=== PATIENT | female | born 1950 | race Caucasian/White ===

== ENCOUNTER 2019-11-19 09:48 | Outpatient (CLI) | payer MEDICARE, SELFPAY ==
--- NOTE | ~2019-11-19 | DEXA_ITS ---
Bone Density Report Name: Berta Virgen Age: 69 Sex: Female Ethnicity: White Date of : 1950 Indication: osteopenia; monitoring treatment; parental hip fracture; postmenopausal Referring Provider: DEMARCO PHILLIP Study: Bone densitometry was performed. Exam Date: November 19, 2019 Accession number: [id number] Bone Density: Region BMD T-score Z-score Classification AP Spine (L2, L3, L4) 0.908 -1.6 0.6 Osteopenia Femoral Neck (Left) 0.652 -1.8 0.0 Osteopenia Total Hip (Left) 0.818 -1.0 0.5 Normal Total Hip Bilateral Avg 0.796 -1.2 0.3 Osteopenia Femoral Neck (Right) 0.585 -2.4 -0.6 Osteopenia Total Hip (Right) 0.772 -1.4 0.1 Osteopenia World Health Organization criteria for BMD impression classify patients as: Normal (T-score at or above -1.0), Osteopenia (T-score between -1.0 and -2.5), or Osteoporosis (T-score at or below -2.5). 10-year Fracture Risk: FRAX not reported because: Treated for osteoporosis Previous Exams: Region Exam Age BMD T-score BMD Change BMD Change Date g/cm2 vs Baseline vs Previous AP Spine(L2, L3, L4) 11/19/2019 69 0.908 -1.6 -0.041(-4.3%)* -0.012(-1.3%) 05/25/2017 66 0.920 -1.4 -0.029(-3.1%)* -0.029(-3.1%)* 03/21/2015 64 0.950 -1.2 Total Hip(Left) 11/19/2019 69 0.818 -1.0 -0.029(-3.5%)* -0.049(-5.6%)* 05/25/2017 66 0.867 -0.6 0.019(2.3%) 0.019(2.3%) 03/21/2015 64 0.848 -0.8 Total Hip(Right) 11/19/2019 69 0.772 -1.4 -0.025(-3.2%) -0.030(-3.7%)* 05/25/2017 66 0.802 -1.1 0.005(0.6%) 0.005(0.6%) 03/21/2015 64 0.797 -1.2 *Denotes significance at 95% confidence level, LSC for AP Spine = 0.022 g/cm2, LSC for Total Hip = 0.027 g/cm2 Clinical Information Provided by Patient: Parent has had a hip fracture Is being treated for osteoporosis Has used the following medications: Boniva (i.e. ibandronate), Fosamax (i.e. alendronate), Vitamin D, Calcium Patient maximum height was 66 Menopause Age: 46 No regular weight bearing exercise Drinks caffeinated beverages Onset of menses at age 11 Number of children 0 Impression: The patient has low bone mass, based on the Right Femoral Neck T-score. The patient has risk factors, including: parental hip fracture. The BMD for the Total Hip(Left) decreased, changing by -5.6% since the last DXA exam. The BMD for the Total Hip(Right) decreased, changing by -3.7% since the last DXA exam. Discussion: SIGNIFICANT BONE LOSS OBSERVED.
== END 2019-11-19 09:49 | disposition home or self-care (01) ==
LOC: ANHIMG 09:52
PROVIDERS: PCP Emergency Medicine; Visit Provider Emergency Medicine
DX: Z78.0 Asymptomatic menopausal state (principal); M85.88 Other specified disorders of bone density and structure, other site; M85.852 Other specified disorders of bone density and structure, left thigh; M85.851 Other specified disorders of bone density and structure, right thigh
CPT/HCPCS: 77080

== ENCOUNTER 2020-01-09 14:16 | Outpatient (CLI) | payer MEDICARE, SELFPAY ==
--- NOTE | ~2020-01-09 | MM_ITS ---
EXAMINATION: MM screening [facility] w vanessa HISTORY: Screening TECHNIQUE: Craniocaudal and mediolateral oblique 3-D tomosynthesis images were obtained and synthetic 2-D images were generated. CAD analysis was submitted and interpreted. COMPARISON: Comparison to multiple prior studies sequentially, with oldest reviewed study dated 09/2016. BREAST PARENCHYMAL COMPOSITION: There are scattered areas of fibroglandular density. FINDINGS: There is no evidence of suspicious mass, calcification, or architectural distortion to sugg est malignancy in either breast. There has been no suspicious interval change. IMPRESSION: 1. No mammographic evidence of malignancy. 2. Recommend routine screening mammography in one year. BI-RADS Category 1: Negative Reviewed, dictated and finalized at location A.
== END 2020-01-09 14:17 | disposition home or self-care (01) ==
LOC: ANHIMG 14:18
PROVIDERS: PCP Emergency Medicine; Visit Provider Emergency Medicine
DX: Z12.31 Encounter for screening mammogram for malignant neoplasm of breast (principal)
CPT/HCPCS: 77063; 77067

== ENCOUNTER 2021-12-02 10:33 | Outpatient (CLI) | payer MEDICARE, SELFPAY ==
--- NOTE | ~2021-12-02 | MM_ITS ---
EXAMINATION: MM screening [facility] BI w vanessa HISTORY: Screening TECHNIQUE: Craniocaudal and mediolateral oblique 3-D tomosynthesis images were obtained and synthetic 2-D images were generated. CAD analysis was submitted and interpreted. COMPARISON: Comparison to multiple prior studies sequentially, with oldest reviewed study dated 09/2016. BREAST PARENCHYMAL COMPOSITION: There are scattered areas of fibroglandular density. FINDINGS: There is no evidence of suspicious mass, calcification, or architectural distortion to sugg est malignancy in either breast. There has been no suspicious interval change. IMPRESSION: 1. No mammographic evidence of malignancy. 2. Recommend routine screening mammography in one year. BI-RADS Category 1: Negative Reviewed, dictated and finalized at location A.
== END 2021-12-02 10:34 | disposition home or self-care (01) ==
PROVIDERS: PCP Emergency Medicine; Visit Provider Emergency Medicine
DX: Z12.31 Encounter for screening mammogram for malignant neoplasm of breast (principal)
CPT/HCPCS: 77063; 77067

== ENCOUNTER 2022-05-21 09:45 | Outpatient (CLI) | payer MEDICARE, SELFPAY ==
--- NOTE | ~2022-05-21 | DEXA_ITS ---
Bone Density Report Name: DAVID BOGGS Age: 71 Sex: Female Ethnicity: White Date of : 1950 Indication: osteopenia; parental hip fracture; postmenopausal Referring Provider: DEMARCO PHILLIP Study: Bone densitometry was performed. Exam Date: May 21, 2022 Accession number: [id number] Bone Density: Region BMD T-score Z-score Classification AP Spine(L2, L3, L4) 0.944 -1.2 1.1 Osteopenia Femoral Neck (Left) 0.661 -1.7 0.3 Osteopenia Total Hip (Left) 0.834 -0.9 0.8 Normal Femoral Neck (Right) 0.614 -2.1 -0.2 Osteopenia Total Hip (Right) 0.706 -1.9 -0.3 Osteopenia Total Hip Mean 0.770 -1.4 0.3 Osteopenia World Health Organization criteria for BMD impression classify patients as: Normal (T-score at or above -1.0), Osteopenia (T-score between -1.0 and -2.5), or Osteoporosis (T-score at or below -2.5). 10-year Fracture Risk(1): Major Osteoporotic Fracture 21% Hip Fracture 9.2% Reported Risk Factors: [place] (), Neck BMD=0.614, BMI=23.8, parental fracture (1) FRAX(R) Version 3.08. Fracture probability calculated for an untreated patient. Fracture probability may be lower if the patient has received treatment. Previous Exams: Region Exam Age BMD T-score BMD Change BMD Change Date g/cm2 vs Baseline vs Previous AP Spine (L2-L4) 05/21/2022 71 0.944 -1.2 -0.006 (-0.6%) 0.036 (3.9%)* 11/19/2019 69 0.908 -1.6 -0.041 (-4.3%) -0.012 (-1.3%) 05/25/2017 66 0.920 -1.4 -0.029 (-3.1%) -0.029 (-3.1%) 03/21/2015 64 0.950 -1.2 Total Hip(Left) 05/21/2022 71 0.834 -0.9 -0.013 (-1.6%) 0.016 (2.0%) 11/19/2019 69 0.818 -1.0 -0.029 (-3.5%) -0.049 (-5.6%) 05/25/2017 66 0.867 -0.6 0.019 (2.3%) 0.019 (2.3%) 03/21/2015 64 0.848 -0.8 Total Hip(Right) 05/21/2022 71 0.706 -1.9 -0.091 (-11.4% -0.066 (-8.5%) 11/19/2019 69 0.772 -1.4 -0.025 (-3.2%) -0.030 (-3.7%) 05/25/2017 66 0.802 -1.1 0.005 (0.6%) 0.005 (0.6%) 03/21/2015 64 0.797 -1.2 *Denotes significance at 95% confidence level, LSC for AP Spine = 0.022 g/cm2, LSC for Total Hip = 0.027 g/cm2 Clinical Information Provided by Patient: Parent has had a hip fracture Has used the following medications: Vitamin D, Calcium Patient maximum height was 66 Menopause Age: 46 Onset of menses at age 11 Number of children 0 Impression: The patient has low bone mass, based on the Right Femoral Neck T-score.
== END 2022-05-21 09:46 | disposition home or self-care (01) ==
LOC: ANHIMG 09:47
PROVIDERS: PCP Emergency Medicine; Visit Provider Emergency Medicine
DX: Z78.0 Asymptomatic menopausal state (principal); M85.89 Other specified disorders of bone density and structure, multiple sites
CPT/HCPCS: 77080

== ENCOUNTER 2022-12-16 00:12 | Day surgery (SDC) | payer MEDICARE, SELFPAY ==
[2022-12-08 08:51] VITALS: BMI 23.3
[2022-12-16 10:51] VITALS: BP 151/71; PULSE 59; RESP 20; TEMP 36.3; O2SAT 98; BMI 22.4
[2022-12-16] MEDS: LACTATED RINGERS 1,000 ML 150 ML IV CONT (10:59)
--- NOTE | 2022-12-16 11:01 | WPDANESEPPF ---
Anes - Initial Pre Proc Eval Procedure: Operation Date: 12/16/22 13:15 Proposed Procedures p Screening Colonoscopy - Asim Mckeon MD Date/Time: 12/16/22 11:01 Surgeon: Asim Mckeon MD Pre Op Diagnosis: neoplasm screening Patient Data Age: 72 Gender: F Height: 1.65 m Weight: 61.1 kg Last Vital Signs Temp 97.4 F L 12/16/22 10:51 Pulse 59 L 12/16/22 10:51 Resp 20 12/16/22 10:51 BP 151/71 H 12/16/22 10:51 Pulse Ox 98 12/16/22 10:51 O2 Del Method Room Air 12/16/22 10:51 Allergies Allergy/AdvReac Type Severity Reaction Status Date / Time No Known Allergies Allergy Verified 12/16/22 10:50 Home Medications Medication Instructions Recorded Confirmed Type fluphenazine enanthate 25 mg/mL 25 mg .Route DIRECTED 07/14/20 12/16/22 History injection solution benztropine 0.5 mg tablet 0.5 mg PO DAILY 07/29/21 12/16/22 History clonazepam 0.5 mg tablet 0.5 mg PO DAILY PRN Anxiety 07/29/21 12/16/22 History fluphenazine HCl 1 mg tablet 1 mg PO DIRECTED PRN other 07/29/21 12/16/22 History calcium 600 mg capsule 600 mg PO DAILY 12/08/22 12/16/22 History cholecalciferol (vitamin D3) 25 25 mcg PO DAILY 12/08/22 12/16/22 History mcg (1,000 unit) tablet multivitamin with minerals-folic 1 tablet PO DAILY 12/08/22 12/16/22 History acid 80 mcg chewable tablet (Centrum Adult 50 Plus) pravastatin 40 mg tablet 40 mg PO DAILY 12/08/22 12/16/22 History Patient hx anesthesia problems: none Family hx anesthesia problems: none Results Review: All pre-operative results and documents have been reviewed as part of the pre-operative evaluation. [facility] Past Medical History Medical History Depression HLD (hyperlipidemia) Family History Family History Mother Patient's mother is , Onset Age: 96 Father Family history of cardiovascular disease, Onset Age: 73 Social History Social History Smoking status: Never smoker Second hand tobacco smoke exposure: No Alcohol intake: former Alcohol use details: wine every other night Substance use: never Substance use type: does not use Lack of Transportation: No Lack of Food: Never True Current Housing: I Have Housing Concerned About Future Housing: No Difficulty Paying Gas/Electric Bills: No Difficulty Paying for Meds: No Currently Unemployed: No Education: Bachelor's Degree Difficulty w/ Childcare or Family Care: No Living arrangements: alone Gender identity (if verbalized by the patient): Female Spiritual care concerns: No Agree to blood products: Yes Anes - Eval Final PreProcedure Day of Procedure 12/16/22 11:01 Patient weight: normal Heart: regular rate and rhythm Lungs: clear to auscultation Airway: Mallampati scale class II Neurological: alert and oriented Last oral intake: >/= 8 hours ASA classification: III Emergent: no Anesthetic plan: proceed Anesthesia type and monitoring: general GIVS and standard monitoring Results Review: All pre-operative results and documents have been reviewed as part of the pre-operative evaluation. Informed Consent: The patient's anesthetic plan and its attendant risks and benefits were discussed with the patient/family/POA. Questions were solicited and answers provided to the satisfaction of the patient/family/POA.
--- NOTE | 2022-12-16 11:04 | PM.HPGS ---
History of Present Illness History of Present Illness Consent: Risks, benefits, and alternatives have been discussed and questions answered. Patient agrees to proceed with procedure. Chief complaint: neoplasm screening Narrative: Berta Virgen is a 72 year old female Presents for screening colonoscopy. Patient's current weight appetite and bowel movements are normal. Patient denies abdominal pain. She has no bleeding. She states she had previous colonoscopy 15 years ago that was unremarkable. Family history is significant for a brother sister mother with had colon polyps. Maternal aunt had colon cancer. Review of Systems Review of Systems: Review of systems noncontributory. [facility] Past Medical History Medical History Depression HLD (hyperlipidemia) Family History Family History Mother Patient's mother is , Onset Age: 96 Father Family history of cardiovascular disease, Onset Age: 73 Social History Social History Smoking status: Never smoker Second hand tobacco smoke exposure: No Alcohol intake: former Alcohol use details: wine every other night Substance use: never Substance use type: does not use Lack of Transportation: No Lack of Food: Never True Current Housing: I Have Housing Concerned About Future Housing: No Difficulty Paying Gas/Electric Bills: No Difficulty Paying for Meds: No Currently Unemployed: No Education: Bachelor's Degree Difficulty w/ Childcare or Family Care: No Living arrangements: alone Gender identity (if verbalized by the patient): Female Spiritual care concerns: No Agree to blood products: Yes Meds Home Medications and Allergies Home Medications Medication Instructions Recorded Confirmed Type fluphenazine enanthate 25 mg/mL 25 mg .Route DIRECTED 07/14/20 12/16/22 History injection solution benztropine 0.5 mg tablet 0.5 mg PO DAILY 07/29/21 12/16/22 History clonazepam 0.5 mg tablet 0.5 mg PO DAILY PRN Anxiety 07/29/21 12/16/22 History fluphenazine HCl 1 mg tablet 1 mg PO DIRECTED PRN other 07/29/21 12/16/22 History calcium 600 mg capsule 600 mg PO DAILY 12/08/22 12/16/22 History cholecalciferol (vitamin D3) 25 25 mcg PO DAILY 12/08/22 12/16/22 History mcg (1,000 unit) tablet multivitamin with minerals-folic 1 tablet PO DAILY 12/08/22 12/16/22 History acid 80 mcg chewable tablet (Centrum Adult 50 Plus) pravastatin 40 mg tablet 40 mg PO DAILY 12/08/22 12/16/22 History Allergies Allergy/AdvReac Type Severity Reaction Status Date / Time No Known Allergies Allergy Verified 12/16/22 10:50 Vital Signs Vital Signs - 24 hr 12/16/22 10:51 Temperature 97.4 F L Pulse Rate 59 L Respiratory Rate 20 Blood Pressure 151/71 H Pulse Oximetry 98 Oxygen Delivery Room Air Exam Narrative: Physical exam reveals patient to be alert. Vital signs stable. HEENT exam is unremarkable. Patient is anicteric. Lungs are clear to auscultation and percussion. Heart is without murmur or extra sounds. Abdomen bowel sounds are present soft nontender with no hepatosplenomegaly. Digital external rectal exam is normal. Assessment and Plan Assessment and plan (1) Colon cancer screening: Code(s): Z12.11 - Encounter for screening for malignant neoplasm of colon Status: Acute Assessment and Plan: Patient has a family history of colon polyps. She presents today for screening colonoscopy.
[2022-12-16 11:23] VITALS: BP 110/64; PULSE 59; RESP 27; O2SAT 98
[2022-12-16 11:33] VITALS: BP 115/60; PULSE 55; RESP 17; O2SAT 98
[2022-12-16 11:43] VITALS: BP 126/74; PULSE 58; RESP 15; O2SAT 100
== END 2022-12-16 11:55 | disposition home or self-care (01) ==
PROVIDERS: PCP Emergency Medicine; Visit Provider Internal Medicine Gastroenterology
PROC: 0DJD8ZZ Inspection of Lower Intestinal Tract, Via Natural or Artificial Opening Endoscopic (ICD-10-PCS; CPT 45378; principal; 2022-12-16 13:15)
DX: Z12.11 Encounter for screening for malignant neoplasm of colon (principal); K64.8 Other hemorrhoids; F32.A Depression, unspecified; E78.5 Hyperlipidemia, unspecified; Z83.71 Family history of colonic polyps
CPT/HCPCS: G0105; J2704; J7120

== ENCOUNTER → 2023-05-13 13:29 | Outpatient (CLI) | payer MEDICARE, SELFPAY ==
--- NOTE | ~2023-05-13 | MM_ITS ---
EXAMINATION: MM screening [facility] BI w vanessa HISTORY: Screening mammogram TECHNIQUE: Craniocaudal and mediolateral oblique 3-D tomosynthesis images were obtained and synthetic 2-D images were generated. CAD analysis was submitted and interpreted. COMPARISON: 12/02/2021, 01/09/2020, 10/05/2016 BREAST PARENCHYMAL COMPOSITION: There are scattered areas of fibroglandular density. FINDINGS: No suspicious mass, calcification, or architectural distortion are identified in either roberto ast to suggest malignancy. There has been no suspicious interval change. IMPRESSION: 1. No mammographic evidence of malignancy. 2. Recommend routine screening mammography in one year. BI-RADS Category 1: Negative Reviewed, dictated and finalized at location A. [employer]
== END ==
PROVIDERS: PCP Emergency Medicine; Visit Provider Emergency Medicine
DX: Z12.31 Encounter for screening mammogram for malignant neoplasm of breast (principal)
CPT/HCPCS: 77063; 77067

== ENCOUNTER 2024-05-15 10:53 | Outpatient (CLI) | payer MEDICARE, SELFPAY ==
--- NOTE | ~2024-05-15 | MM_ITS ---
EXAMINATION: MM screening [facility] w vanessa HISTORY: Screening mammogram TECHNIQUE: Craniocaudal and mediolateral oblique 3-D tomosynthesis images were obtained and synthetic 2-D images were generated. CAD analysis was submitted and interpreted. COMPARISON: 05/13/2023, 12/02/2021, 01/09/2020 BREAST PARENCHYMAL COMPOSITION:Not Dense. The breasts are almost entirely fatty FINDINGS: No suspicious mass, calcification, or architectural distortion are identified in either roberto ast to suggest malignancy. There has been no suspicious interval change. IMPRESSION: No mammographic evidence of malignancy. Recommend routine screening mammography in one year. BI-RADS Category 1: Negative Reviewed, dictated and finalized at location . [employer]
== END 2024-05-15 10:54 | disposition home or self-care (01) ==
LOC: MICIMG 10:54
PROVIDERS: PCP Emergency Medicine; Visit Provider Emergency Medicine
DX: Z12.31 Encounter for screening mammogram for malignant neoplasm of breast (principal)
CPT/HCPCS: 77063; 77067

== ENCOUNTER 2024-08-14 13:41 | Emergency (ER) | payer MEDICARE, SELFPAY ==
--- NOTE | 2024-08-14 13:45 | ED.EAR ---
HPI - Ear Problem General Chief complaint: Ear Stated complaint: right ear blocked Time Seen by Provider: 08/14/24 14:09 Source: patient and RN notes reviewed Mode of arrival: ambulatory Limitations: no limitations History of Present Illness HPI Narrative: 74-year-old female presents with concern of for right ear fullness. She reports she has used the rocks and hydrogen peroxide and feels like there is something that removed in the ear. She denies pain. MD Complaint: decreased hearing Related Data Home Medications ?Medication ?Instructions ?Recorded ?Confirmed ?Last Taken ?Type fluphenazine enanthate 25 mg/mL 25 mg .Route DIRECTED 07/14/20 08/14/24 Unknown History injection solution benztropine 0.5 mg tablet 0.5 mg PO DAILY 07/29/21 08/14/24 Unknown History clonazepam 0.5 mg tablet 0.5 mg PO DAILY PRN Anxiety 07/29/21 08/14/24 12/16/22 08:30 History fluphenazine HCl 1 mg tablet 1 mg PO DIRECTED PRN other 07/29/21 08/14/24 Unknown History calcium 600 mg capsule 600 mg PO DAILY 12/08/22 08/14/24 Unknown History cholecalciferol (vitamin D3) 25 25 mcg PO DAILY 12/08/22 08/14/24 Unknown History mcg (1,000 unit) tablet Allergies Allergy/AdvReac Type Severity Reaction Status Date / Time No Known Allergies Allergy Verified 08/14/24 13:44 Review of Systems Review of Systems: CONSTITUTIONAL: Denies malaise, chills, sweats, or fever. EYES: Denies visual changes, redness, or discharge. ENT: Denies rhinorrhea, congestion, sinus pain, and sore throat. Reports right ear fullness CARDIOVASCULAR: Denies chest pain, palpitations, or edema. RESPIRATORY: Denies cough. Denies dyspnea. GASTROINTESTINAL: Denies abdominal pain, nausea, vomiting, diarrhea SKIN: Denies rash or itching. MUSCULOSKELETAL: Denies myalgia. NEUROLOGIC: Denies headache. All systems reviewed & are unremarkable except as noted in HPI and below PMFSH Past Medical History Medical History Vitamin D deficiency Pain of right thumb Osteoporosis Joint stiffness HTN (hypertension), benign Anxiety Depression HLD (hyperlipidemia) Family History Family History Mother Patient's mother is , Onset Age: 96 Father Family history of cardiovascular disease, Onset Age: 73 Social History Social History Smoking status: Never smoker Second hand tobacco smoke exposure: No Alcohol intake: former Alcohol use details: wine every other night Substance use: never Substance use type: does not use Do You Feel Safe in your Home?: Yes Lack of Transportation: No Lack of Food: Never True Current Housing: I Have Housing Concerned About Future Housing: No Difficulty Paying Gas/Electric Bills: No Difficulty Paying for Meds: No Currently Unemployed: No Education: Bachelor's Degree Difficulty w/ Childcare or Family Care: No Living arrangements: alone Gender identity (if verbalized by the patient): Female Spiritual care concerns: No Agree to blood products: Yes Comments At time of signature, agree with nursing past medical, surgical, social and family history. There is no relevant family history pertinent to the presenting complaint Exam Narrative: GENERAL: Well-appearing, well-nourished, and in no acute distress. HEAD: Normocephalic EYES: PERRLA, conjunctivae clear ENT: Nares clear. Mucous membranes moist. TM pearly enrique with sharp light reflex on the left, TM not visible on the right due to cerumen impaction; no tragal tenderness. Oropharynx not erythematous without lesions. Tonsils not enlarged and without exudate, no drooling, no hoarseness, no trismus, uvula midline. NECK: Supple. No lymphadenopathy CHEST: Clear to auscultation, breath sounds equal. No wheezing, rhonchi, rales, or stridor. No respiratory distress, speaks in full sentences. HEART: Regular rate and rhythm. No murmur heard. SKIN: Warm, dry, no rash. NEURO: Alert and oriented x3. PSYCH: Normal mood and affect Course Course Emergency Course: Patient is aware of diagnosis, understands and agrees to treatment plan. Anticipatory guidance given. Patient agrees to follow-up as directed and is aware of reasons to seek care at the emergency department. Portions of this record may have been created with voice recognition software Level of Care: Express Care Visit Vital Signs Vital signs: Vital Signs Temperature 98.3 F 08/14/24 13:57 Pulse Rate 67 08/14/24 13:57 Respiratory Rate 16 08/14/24 13:57 Blood Pressure 157/74 H 08/14/24 13:57 Pulse Oximetry 100 08/14/24 13:57 Oxygen Delivery Room Air 08/14/24 13:57 Temperature 98.3 F 08/14/24 13:57 Pulse Rate 67 08/14/24 13:57 Respiratory Rate 16 08/14/24 13:57 Blood Pressure 157/74 H 08/14/24 13:57 Pulse Oximetry 100 08/14/24 13:57 Oxygen Delivery Room Air 08/14/24 13:57 Reviewed. Procedures Ear Wax Removal Right Ear: Ear Wax Removal Date: 08/14/24 Ear Wax Removal Time: 14:10 Cerumenolytic Used: other (Hydrogen peroxide) Results: Re-examined: cerumen removed completely TM Examination: TM(s) intact, normal appearance Ear Canal Exam: atraumatic Patient Tolerated Procedure: well Complications: no problems Technique: ear canal irrigated and ear canal curetted Medical Decision Making MDM Narrative Medical decision making narrative: I evaluated this in the [facility] care. History is obtained from patient who is an independent historian and physical exam was performed.? Available medical records were reviewed. ? Exam findings and relevant testing show no acute concerns or changes; patient is non-toxic appearing and is in no distress. Differential diagnosis considered: Alegre virus, strep pharyngitis, allergic rhinitis, upper respiratory tract infection, sinusitis, rhinosinusitis, nasopharyngitis. viral pharyngitis, otitis media, otitis externa, otitis effusion, cerumen impaction, foreign body. Exam findings show no acute concerns or changes; patient is non-toxic appearing and is in no distress. Patient is appropriate for outpatient treatment and follow-up. ? Differential diagnosis and treatment plan were discussed with the patient. Patient agrees with discussion and after shared medical decision making agrees with plan of care. All questions were answered to the patient's satisfaction. Patient is appropriate for outpatient treatment and follow-up. Vital Signs Vital Signs: Vital Signs Temperature 98.3 F 08/14/24 13:57 Pulse Rate 67 08/14/24 13:57 Respiratory Rate 16 08/14/24 13:57 Blood Pressure 157/74 H 08/14/24 13:57 Pulse Oximetry 100 08/14/24 13:57 Oxygen Delivery Room Air 08/14/24 13:57 Temperature 98.3 F 08/14/24 13:57 Pulse Rate 67 08/14/24 13:57 Respiratory Rate 16 08/14/24 13:57 Blood Pressure 157/74 H 08/14/24 13:57 Pulse Oximetry 100 08/14/24 13:57 Oxygen Delivery Room Air 08/14/24 13:57 Critical Care Time Critical Care Time Critical Care Time: No Discharge Plan Discharge Clinical Impression: Cerumen impaction Patient Disposition: Home Condition: Stable Instructions: General Patient Instructions Additional Instructions: Ear wax impaction is when ear wax builds up enough to cause symptoms. Normally, ear wax helps to protect the insides of the ears and prevents injury or infection. But having too much ear wax can cause symptoms such as pain and trouble hearing. The medical term for ear wax is cerumen. The insides of the ears do not usually need to be cleaned. Sticking anything into the ears can push the wax in deeper and cause impaction. How is ear wax impaction treated? There are several treatments to remove impacted ear wax. Treatment is usually only needed if the impaction is causing bothersome symptoms. Treatment is not recommended for removing ear wax in people who have no symptoms, even if their ears are impacted. There are several different ways to remove ear wax: ?Ear drops - Special ear drops can soften ear wax and help it to drain out. Ear drops are not usually safe for people with an ear infection or damage to the eardrum. ?Rinsing - In some cases, a doctor or nurse can remove impacted ear wax by squirting water (or a special liquid) into the ear to rinse it out. ?Special tools - A doctor or nurse might use a special tool to remove ear wax. There are different types of tools that can do this safely. These include small sticks, hooks, and spoons. There are also tools that use suction to pull the wax out. If you have recurrent cerumen impaction and no significant ear disease, you can use hydrogen peroxide to soften the wax so it comes out on its own. Do not put any tools on q-tips into your ears. Please use any drops that may have been prescribed to you. Follow up with your doctor if you have any new symptoms or concerns. Patient Language: Wolof Prescriptions: No Action fluphenazine enanthate 25 mg/mL solution 25 mg .Route DIRECTED Rx Instructions: inject 1 ML by subcutaneous route every 2 weeks fluphenazine HCl 1 mg tablet 1 mg PO DIRECTED PRN (Reason: other) benztropine 0.5 mg tablet 0.5 mg PO DAILY clonazepam 0.5 mg tablet 0.5 mg PO DAILY PRN (Reason: Anxiety) calcium 600 mg Capsule 600 mg PO DAILY cholecalciferol (vitamin D3) 25 mcg (1,000 unit) Tablet 25 mcg PO DAILY Follow-up/Referrals: Callum Tello MD [Primary Care Provider] - Time of Disposition: 14:18
[2024-08-14 13:57] VITALS: BP 157/74; PULSE 67; RESP 16; TEMP 36.8; O2SAT 100
== END 2024-08-14 14:24 | disposition home or self-care (01) ==
PROVIDERS: Emergency Provider Nurse Practitioner; PCP Emergency Medicine
DX: H61.21 Impacted cerumen, right ear (principal); M81.0 Age-related osteoporosis without current pathological fracture; I10 Essential (primary) hypertension; E78.5 Hyperlipidemia, unspecified; E55.9 Vitamin D deficiency, unspecified; F41.9 Anxiety disorder, unspecified
CPT/HCPCS: 69210; 99212; G0463

== ENCOUNTER 2024-10-05 12:35 | Outpatient (CLI) | payer MEDICARE, SELFPAY ==
--- NOTE | ~2024-10-05 | DEXA_ITS ---
Bone Density Report Name: DAVID BOGGS Age: 74 Sex: Female Ethnicity: White Date of : 1950 Indication: osteopenia; parental hip fracture; Referring Provider: DEMARCO PHILLIP Study: Bone densitometry was performed. Exam Date: October 05, 2024 Accession number: [id number] Bone Density: Region BMD T-score Z-score Classification AP Spine(L1-L4) 0.858 -1.7 0.7 Osteopenia Femoral Neck (Left) 0.684 -1.5 0.6 Osteopenia Total Hip (Left) 0.862 -0.7 1.1 Normal Femoral Neck (Right) 0.580 -2.4 -0.3 Osteopenia Total Hip (Right) 0.756 -1.5 0.3 Osteopenia Total Hip Mean 0.809 -1.1 0.7 Osteopenia World Health Organization criteria for BMD impression classify patients as: Normal (T-score at or above -1.0), Osteopenia (T-score between -1.0 and -2.5), or Osteoporosis (T-score at or below -2.5). 10-year Fracture Risk(1): Major Osteoporotic Fracture 28% Hip Fracture 18% Reported Risk Factors: [place] (), Neck BMD=0.580, BMI=23.6, parental fracture (1) FRAX(R) Version 3.08. Fracture probability calculated for an untreated patient. Fracture probability may be lower if the patient has received treatment. Previous Exams: -- Region Exam Age BMD T-score BMD Change BMD Change Date g/cm2 vs Baseline vs Previous -- AP Spine (L1-L4) 10/05/2024 74 0.858 -1.7 -8.4%# -14.8%# 10/05/2011 61 1.007 -0.4 7.6%* 13.3%* 07/23/2009 59 0.889 -1.4 -5.0%* -5.0%* 09/02/2004 54 0.936 -1.0 Total Hip(Left) 10/05/2024 74 0.862 -0.7 -9.0%# -2.3%# 10/05/2011 61 0.883 -0.5 -6.8%* -4.0%* 07/23/2009 59 0.920 -0.2 -2.9%* -2.9%* 09/02/2004 54 0.947 0.0 Total Hip(Right) 10/05/2024 74 0.756 -1.5 -13.3%# -6.0%# 10/05/2011 61 0.804 -1.1 -7.8%* -3.3%* 07/23/2009 59 0.832 -0.9 -4.6%* -4.6%* 09/02/2004 54 0.872 -0.6 -- *Denotes significance at 95% confidence level, LSC for AP Spine = 0.022 g/cm2, LSC for Total Hip = 0.027 g/cm2 # Denotes dissimilar scan types or analysis methods Clinical Information Provided by Patient: Parent has had a hip fracture Has used the following medications: Vitamin D, Calcium Patient maximum height was 65.6 Menopause Age: 46 Drinks caffeinated beverages Onset of menses at age 11 Number of children 0 Impression: The patient has low bone mass, based on the Right Femoral Neck T-score. The patient has an estimated ten-year risk of hip fracture of 18% and an estimated ten-year risk of major fracture of 28%, based on the WHO FRAX algorithm. The patient has risk factors, including: parental hip fracture. Unable to evaluate interval change due to the use of different scan modes. Discussion: BONE DENSITY IS LOW AT ONE OR MORE SKELETAL SITES. THE PATIENT'S BMD AND CLINICAL RISK FACTORS CONTRIBUTE TO THIS PATIENT'S HIGH RISK OF FRACTURE. This patient's lowest T-score is low at one or more skeletal sites. It meets the World Health Organization's (WHO) criteria for ?low bone mass? (T-score between -1.0 and -2.5). The patient's 10-year risk of hip fracture and 10 year risk of a major osteoporotic fracture as calculated by FRAX exceeds the threshold where pharmacological therapy is recommended by the National Osteoporosis Foundation (NOF). However, all treatment decisions require clinical judgment and consideration of individual patient factors, including patient preferences, comorbidities, previous drug use, risk factors not captured in the FRAX model (e.g., frailty, falls, vitamin D deficiency, increased bone turnover, interval significant decline in bone density) and possible under or overestimation of fracture risk by FRAX. The patient should follow a healthful lifestyle (good nutrition with adequate calcium and vitamin D, and appropriate weight-bearing exercise). Follow-Up: Consider a repeat BMD and Vertebral Fracture Assessment (VFA) exam in 2 years or sooner if medically necessary, to reassess this patient's status. Reported by: CHRISTINA on 10/05/2024 12:58:00 PM. Reviewed, dictated and finalized at location A.
== END 2024-10-05 12:36 | disposition home or self-care (01) ==
LOC: MICIMG 12:36
PROVIDERS: PCP Emergency Medicine; Visit Provider Emergency Medicine
DX: M85.89 Other specified disorders of bone density and structure, multiple sites (principal); Z78.0 Asymptomatic menopausal state
CPT/HCPCS: 77080

== ENCOUNTER 2024-11-19 09:45 | Emergency (ER) | payer MEDICARE, SELFPAY ==
[2024-11-19 09:55] VITALS: BP 145/72; PULSE 65; RESP 16; TEMP 36.2; O2SAT 100
--- NOTE | 2024-11-19 10:21 | ED_ITS ---
HPI - Skin/Abscess/Foreign Bdy General Chief complaint: Skin/Abscess/Foreign Body Stated complaint: Skin/Abscess/Foreign Body Time Seen by Provider: 11/19/24 09:47 Source: patient and RN notes reviewed Mode of arrival: ambulatory Limitations: no limitations History of Present Illness HPI narrative: Patient presents today complaining of pruritic rash to the face and neck x3 days with some swelling around her eyes.. She had been pulling leads just prior to onset of symptoms and believe she contacted some poison jaida. She has been using calamine lotion, aloe, and Bactine. Bactine was the only thing that is been helpful. Denies shortness of breath, difficulty swallowing. Related Data Home Medications ?Medication ?Instructions ?Recorded ?Confirmed ?Last Taken ?Type fluphenazine enanthate 25 mg/mL 25 mg .Route DIRECTED 07/14/20 10/02/24 Unknown History injection solution benztropine 0.5 mg tablet 0.5 mg PO DAILY 07/29/21 10/02/24 Unknown History clonazepam 0.5 mg tablet 0.5 mg PO DAILY PRN Anxiety 07/29/21 10/02/24 12/16/22 08:30 History fluphenazine HCl 1 mg tablet 1 mg PO DIRECTED PRN other 07/29/21 10/02/24 Unknown History calcium 600 mg capsule 600 mg PO DAILY 12/08/22 10/02/24 Unknown History cholecalciferol (vitamin D3) 25 25 mcg PO DAILY 12/08/22 10/02/24 Unknown History mcg (1,000 unit) tablet Allergies Allergy/AdvReac Type Severity Reaction Status Date / Time No Known Allergies Allergy Verified 11/19/24 09:46 [facility] Past Medical History Medical History Vitamin D deficiency Pain of right thumb Osteoporosis Joint stiffness HTN (hypertension), benign Anxiety Depression HLD (hyperlipidemia) Family History Family History Mother Patient's mother is , Onset Age: 96 Father Family history of cardiovascular disease, Onset Age: 73 Social History Social History Smoking status: Never smoker Second hand tobacco smoke exposure: No Alcohol intake: former Alcohol use details: wine every other night Substance use: never Substance use type: does not use Do You Feel Safe in your Home?: Yes Lack of Transportation: No Lack of Food: Never True Current Housing: I Have Housing Concerned About Future Housing: No Difficulty Paying Gas/Electric Bills: No Difficulty Paying for Meds: No Currently Unemployed: No Education: Bachelor's Degree Difficulty w/ Childcare or Family Care: No Living arrangements: alone Gender identity (if verbalized by the patient): Female Spiritual care concerns: No Agree to blood products: Yes Comments At time of signature, I have reviewed and agree with nursing past medical, surgical, social and family history unless otherwise noted. Please see nursing chart for further information. There is no relevant family history pertinent to the presenting complaint Exam Narrative: GENERAL: Well-appearing, well-nourished, and in no acute distress. HEAD: Normocephalic EYES: EOMI. PERRL. No redness or drainage. Conjunctivae normal. Erythematous maculopapular rash surrounding both eyes and extending down to both cheeks. Mild to moderate swelling of the bilateral upper and lower eyelids. No induration, fluctuance, crusting or drainage, vesicles. Similar rash in small patches to the anterior neck and bilateral antecubital fossa. ENT: Mucous membranes pink and moist. NECK: Normal AROM. CHEST: No respiratory distress. EXTREMITIES: Normal range of motion. No edema. SKIN: Warm, dry. Capillary refill normal. Normal skin turgor. NEURO: No focal deficits. Alert and oriented x3. Gait steady. PSYCH: Normal affect. No signs of depression or anxiety. Course Course Level of Care: Express Care Visit Vital Signs Vital signs: Vital Signs Temperature 97.2 F L 11/19/24 09:55 Pulse Rate 65 11/19/24 09:55 Respiratory Rate 16 11/19/24 09:55 Blood Pressure 145/72 H 11/19/24 09:55 Pulse Oximetry 100 11/19/24 09:55 Oxygen Delivery Room Air 11/19/24 09:55 Temperature 97.2 F L 11/19/24 09:55 Pulse Rate 65 11/19/24 09:55 Respiratory Rate 16 11/19/24 09:55 Blood Pressure 145/72 H 11/19/24 09:55 Pulse Oximetry 100 11/19/24 09:55 Oxygen Delivery Room Air 11/19/24 09:55 Reviewed MDM - Skin/Abscess/Foreign Bdy MDM Narrative Medical decision making narrative: 74-year-old female patient presents today with a pruritic rash to the face and neck as well as a mild rash to the bilateral antecubital fossa x3 days with likely exposure to poison jaida with swelling around the eyes. Prescription for Course of tapering prednisone sent to pharmacy. Recommend continuing topical calamine or Bactine if needed. No signs of bacterial infection present. Vital signs stable. Anticipatory guidance given. Differential Diagnosis Differential diagnosis: Likely abscess of skin or subcutaneous tissue, cellulitis, impetigo and contact dermatitis Critical Care Time Critical Care Time Critical Care Time: No Discharge Plan Discharge Clinical Impression: Poison jaida dermatitis Patient Disposition: Home Condition: Stable Instructions: Poison Jaida (ED) Additional Instructions: Please take the prednisone as directed. Please take medication in the morning as it can keep you awake at night if taken in the afternoon or evening. You may continue topical treatment such as calamine lotion or Bactine if this is helpful. Follow-up with your PCP in 4-5 days if symptoms are not improving. Your blood pressure was elevated above 120/80 today at Urgent Care. This puts you above the threshold for follow up. Please schedule a followup visit with y our personal physician as soon as possible, for further evaluation and treatment. Even blood pressure exceeding 120/80 may indicate pre-hypertension. Patient Language: Luxembourgish Prescriptions: New prednisone 10 mg tablet See Rx Instructions .ROUTE .COMPLEX Qty: 30 0RF Rx Instructions: 4 tabs daily x3 days,then 3 tabs daily x3 days,then 2 tabs daily x3 days, then 1 tab daily x3 days No Action fluphenazine enanthate 25 mg/mL solution 25 mg .Route DIRECTED Rx Instructions: inject 1 ML by subcutaneous route every 2 weeks fluphenazine HCl 1 mg tablet 1 mg PO DIRECTED PRN (Reason: other) benztropine 0.5 mg tablet 0.5 mg PO DAILY clonazepam 0.5 mg tablet 0.5 mg PO DAILY PRN (Reason: Anxiety) calcium 600 mg Capsule 600 mg PO DAILY cholecalciferol (vitamin D3) 25 mcg (1,000 unit) Tablet 25 mcg PO DAILY Follow-up/Referrals: Callum Tello MD [Primary Care Provider] - Time of Disposition: 10:12
== END 2024-11-19 10:13 | disposition home or self-care (01) ==
PROVIDERS: Emergency Provider Nurse Practitioner; PCP Emergency Medicine
DX: L23.7 Allergic contact dermatitis due to plants, except food (principal); I10 Essential (primary) hypertension; E78.5 Hyperlipidemia, unspecified; M81.0 Age-related osteoporosis without current pathological fracture; F41.9 Anxiety disorder, unspecified
CPT/HCPCS: 99213; G0463